=== PATIENT | male | born 2000 | race Caucasian/White ===

== ENCOUNTER 2020-06-05 15:37 | Emergency (ER) | payer OTHER ==
[~2020-06-05] VITALS: Ht 190.5 cm; Wt 65.0 kg
[2020-06-05 15:42] VITALS: BP 126/71
== END 2020-06-05 18:05 | disposition home or self-care (01) ==
LOC: ER 15:37
DX: S70.01XA Contusion of right hip, initial encounter (principal); V00.131A Fall from skateboard, initial encounter; Y93.51 Activity, roller skating (inline) and skateboarding; Y92.89 Other specified places as the place of occurrence of the external cause; Y99.8 Other external cause status
CPT/HCPCS: 73502; 99284

== ENCOUNTER 2021-10-02 17:55 | Emergency (ER) | payer SELFPAY ==
[~2021-10-02] VITALS: Ht 188 cm; Wt 68.2 kg
[2021-10-02 18:04] VITALS: BP 137/86
[2021-10-02] MEDS ORDERED: acetaminophen 325mg tablet PO ONE (23:40)
== END 2021-10-03 00:39 | disposition home or self-care (01) ==
LOC: ER 17:55
DX: S93.401A Sprain of unspecified ligament of right ankle, initial encounter (principal)
CPT/HCPCS: 73630; 99283